=== PATIENT | female | born 1975 | race Caucasian/White ===

== ENCOUNTER 2017-11-23 17:35 | Emergency (ER) | payer MEDICAID ==
[2010-11-03 07:13] VITALS: BMI 27.0
[2017-11-23 18:25] LABS: HCG URINE NEGATIVE (NEGATIVE)
== END 2017-11-23 21:23 | disposition home or self-care (01) ==
LOC: D.ER 17:35
PROVIDERS: Emergency Medicine
DX: M54.6 Pain in thoracic spine (principal); R51 Headache; R07.81 Pleurodynia; V49.9XXA Car occupant (driver) (passenger) injured in unspecified traffic accident, initial encounter; Y93.89 Activity, other specified; Y92.410 Unspecified street and highway as the place of occurrence of the external cause; F17.200 Nicotine dependence, unspecified, uncomplicated

== ENCOUNTER 2018-01-26 12:19 | Emergency (ER) | payer MEDICAID ==
[2010-11-03 07:13] VITALS: BMI 27.0
== END 2018-01-26 13:15 | disposition home or self-care (01) ==
LOC: D.ER 12:19
DX: F41.9 Anxiety disorder, unspecified (principal); Z86.59 Personal history of other mental and behavioral disorders; F43.23 Adjustment disorder with mixed anxiety and depressed mood; F17.200 Nicotine dependence, unspecified, uncomplicated

== ENCOUNTER 2019-01-06 13:31 | Emergency (ER) | payer SELFPAY ==
[~2019-01-06] VITALS: Ht 165.1 cm; Wt 65.9 kg
[2019-01-06 13:33] VITALS: Ht 165.1 cm; Wt 65.9 kg
[2019-01-06] MEDS ORDERED: AMBIEN10 MG (13:41)
[2019-01-06] MEDS ORDERED: PREDNISONE20 MG PO (14:49)
[2019-01-06] MEDS ORDERED: PEPCID AC20 MG PO (14:49)
[2019-01-06 15:52] VITALS: BP 115/36
== END 2019-01-06 15:53 | disposition home or self-care (01) ==
LOC: D.ER 13:31
DX: T78.40XA Allergy, unspecified, initial encounter (principal); X58.XXXA Exposure to other specified factors, initial encounter